=== PATIENT | male | born 1955 | race Caucasian/White ===

== ENCOUNTER 2022-03-28 18:47 | Inpatient (IN) | payer BC, OTHER ==
[~2022-03-28 18:47] MED LIST: Iopamidol-370 76% 500 ML 1 ML ONE
[2022-03-28 19:31] LABS: Hemoglobin 11.4 g/dL (14.0-18.0); Mean Corpuscular HGB CONC 33.2 g/dL (32.0-36.0); Mean Corpuscular Hemoglobin 31.6 pg (27.0-31.0); Mean Corpuscular Volume 95.1 fl (78.0-98.0); Mean Platelet Volume 8.4 fL (7.4-10.4); Platelet Count 261 thou/uL (130-400); RBC Distribution Width 12.8 % (11.5-14.5); White Blood Cell (WBC) Count 18.8 thou/uL (4.8-10.8)
[2022-03-28 19:52] LABS: ALT (SGPT) 35 U/L (8-55); AST (SGOT) 51 U/L (5-34); Albumin 3.4 g/dL (3.4-4.8); Alkaline Phosphatase 91 U/L (40-110); Anion Gap 13 mmol/L (10-20); BUN (Urea Nitrogen) 10 mg/dL (8.4-25.7); Bilirubin, Total 0.5 mg/dL (0.2-1.2); Calc. Creatinine Clearance 0 mL/min (70-130); Calcium 8.8 mg/dL (7.8-10.44); Carbon Dioxide 25 mmol/L (23-31); Chloride 93 mmol/L (98-107); Estimated GFR 83; Globulin 3.8 g/dL (2.4-3.5); Glucose 113 mg/dL (80-115); Lipase 103 U/L (8-78); Potassium 3.8 mmol/L (3.5-5.1); Protein, Total 7.2 g/dL (5.8-8.1); Sodium 127 mmol/L (136-145)
[2022-03-28 19:54] LABS: Band 12 % (5-11); Lymphocytes 13 % (21-51); MDiff Complete? YES; Monocytes 6 % (0-10); Neutrophil 66 % (42-75); Platelet Morphology Comment Appears Adequate; Polychromasia SLIGHT = 2-3 cells (100X) (0-2/hpf); Reactive Lymphocytes 2 % (0-10)
[2022-03-28] MEDS ORDERED: Piperacillin/Tazobactam 3.375 GM VIAL ONE (22:12)
[2022-03-28] MEDS ORDERED: Ondansetron PF 4 MG/2 ML Vial ONE (22:12)
[2022-03-28] MEDS ORDERED: Morphine 4 MG/ML VIAL ONE (22:12)
[2022-03-29 00:16] VITALS: BMI 29.7
[2022-03-29] MEDS: Sodium Chloride 0.9% 1,000 ML IV SCH ×2 (00:27→14:06)
[2022-03-29] MEDS: Morphine 4 MG/ML VIAL SLOW IVP PRN ×4 (00:31→21:38)
[2022-03-29] MEDS: Piperacillin/Tazobactam 3.375 GM in Sodium Chloride 0.9% 100 ML IVPB SCH ×3 (01:48→17:29)
[2022-03-29 07:15] LABS: #Eosinphils 0.2 thou/uL (0.0-0.7); #Lymphocytes 1.4 thou/uL (1.20-3.40); #Monocytes 1.9 thou/uL (0.11-0.59); %Basophils 0.2 % (0.0-1.0); %Eosinophils 1.3 % (0.0-10.0); %Lymphocytes 7.8 % (21.0-51.0); %Neutrophils 79.7 % (42.0-75.0); Hemoglobin 11.9 g/dL (14.0-18.0); Mean Corpuscular HGB CONC 33.3 g/dL (32.0-36.0); Mean Platelet Volume 8.3 fL (7.4-10.4); Platelet Count 275 thou/uL (130-400); RBC Distribution Width 12.9 % (11.5-14.5); Red Blood Cell (RBC) Count 3.71 mill/uL (4.70-6.10); White Blood Cell (WBC) Count 17.6 thou/uL (4.8-10.8)
[2022-03-29 07:29] LABS: INR-International Normal Ratio 1.1; PTT 34.2 sec (22.9-36.1); Prothrombin Time 14.7 sec (12.0-14.7)
[2022-03-29 07:34] LABS: Anion Gap 10 mmol/L (10-20); BUN (Urea Nitrogen) 8 mg/dL (8.4-25.7); Calc. Creatinine Clearance 99 mL/min (70-130); Carbon Dioxide 23 mmol/L (23-31); Chloride 99 mmol/L (98-107); Estimated GFR 93; Glucose 110 mg/dL (80-115); Potassium 4.1 mmol/L (3.5-5.1); Sodium 128 mmol/L (136-145)
[2022-03-29] MEDS: Famotidine/PF 20 mg/2ml Vial SLOW IVP SCH (08:01)
[2022-03-29] MEDS ORDERED: FENTANYL 50 MCG/ML 1 ML VIAL ONE (09:49)
[2022-03-29] MEDS ORDERED: Midazolam HCl 2 mg/2 ml Vial ONE (09:49)
[2022-03-29] MEDS ORDERED: Sodium Bicarbonate 2.5 MEQ/5 ML VIAL ONE (09:50)
[2022-03-29] MEDS ORDERED: Lidocaine 2% PF 5 ML VIAL ONE (09:50)
[2022-03-29 12:12] LABS: BF Color Brown; Body Fluid Source Abscess Fluid; Clarity Cloudy/Turbid (Clear)
[2022-03-29 12:16] LABS: Cell Count Non Hematic 7 %; Lymphocytes 4 %
[2022-03-29 12:20] LABS: Segmented Neutrophils 89 %
[2022-03-30] MEDS: Piperacillin/Tazobactam 3.375 GM in Sodium Chloride 0.9% 100 ML IVPB SCH ×3 (01:10→17:21)
[2022-03-30] MEDS: Sodium Chloride 0.9% 1,000 ML IV SCH ×2 (01:11→15:17)
[2022-03-30] MEDS: Morphine 4 MG/ML VIAL SLOW IVP PRN (06:11)
[2022-03-30] MEDS: Famotidine/PF 20 mg/2ml Vial SLOW IVP SCH (08:48)
[2022-03-30] MEDS ORDERED: Polyethylene Glycol 3350 17 GM Packet PO PRN (18:43)
[2022-03-30] MEDS: Docusate 100 MG CAP PO SCH (20:53)
[2022-03-30] MEDS: Enoxaparin Sodium 40 MG/0.4 ML SYRINGE SC SCH (20:54)
[2022-03-31] MEDS: Piperacillin/Tazobactam 3.375 GM in Sodium Chloride 0.9% 100 ML IVPB SCH ×3 (01:36→17:10)
[2022-03-31] MEDS: Sodium Chloride 0.9% 1,000 ML IV SCH (05:11)
[2022-03-31] MEDS: Morphine 4 MG/ML VIAL SLOW IVP PRN (05:31)
[2022-03-31 06:11] LABS: #Eosinphils 0.5 thou/uL (0.0-0.7); #Lymphocytes 1.4 thou/uL (1.20-3.40); #Monocytes 0.9 thou/uL (0.11-0.59); #Neutrophils 7.7 thou/uL (1.40-6.50); %Basophils 0.1 % (0.0-1.0); %Eosinophils 4.5 % (0.0-10.0); %Lymphocytes 13.8 % (21.0-51.0); %Monocytes 8.3 % (0.0-10.0); %Neutrophils 73.4 % (42.0-75.0); Hemoglobin 10.8 g/dL (14.0-18.0); Mean Corpuscular HGB CONC 33.2 g/dL (32.0-36.0); Mean Corpuscular Volume 96.4 fl (78.0-98.0); Mean Platelet Volume 8.3 fL (7.4-10.4); Platelet Count 305 thou/uL (130-400); Red Blood Cell (RBC) Count 3.37 mill/uL (4.70-6.10); White Blood Cell (WBC) Count 10.5 thou/uL (4.8-10.8)
[2022-03-31 06:46] LABS: ALT (SGPT) 25 U/L (8-55); AST (SGOT) 42 U/L (5-34); Albumin 2.7 g/dL (3.4-4.8); Alkaline Phosphatase 69 U/L (40-110); Anion Gap 10 mmol/L (10-20); BUN (Urea Nitrogen) 10 mg/dL (8.4-25.7); Bilirubin, Total 0.7 mg/dL (0.2-1.2); Calc. Creatinine Clearance 101 mL/min (70-130); Carbon Dioxide 25 mmol/L (23-31); Chloride 100 mmol/L (98-107); Estimated GFR 95; Globulin 3.5 g/dL (2.4-3.5); Glucose 110 mg/dL (80-115); Protein, Total 6.2 g/dL (5.8-8.1); Sodium 131 mmol/L (136-145)
[2022-03-31] MEDS: Famotidine/PF 20 mg/2ml Vial SLOW IVP SCH (09:10)
[2022-03-31] MEDS: Docusate 100 MG CAP PO SCH ×2 (09:11→20:00)
[2022-03-31] MEDS: Saccharomyces boulardii 250 MG CAP PO SCH (09:11)
[2022-03-31] MEDS ORDERED: Bisacodyl 5 MG TAB PO PRN (14:20)
[2022-03-31] MEDS: Enoxaparin Sodium 40 MG/0.4 ML SYRINGE SC SCH (20:00)
[2022-04-01] MEDS: Piperacillin/Tazobactam 3.375 GM in Sodium Chloride 0.9% 100 ML IVPB SCH ×2 (02:20→08:47)
[2022-04-01 07:39] LABS: Anion Gap 11 mmol/L (10-20); BUN (Urea Nitrogen) 9 mg/dL (8.4-25.7); Calc. Creatinine Clearance 99 mL/min (70-130); Calcium 8.4 mg/dL (7.8-10.44); Carbon Dioxide 24 mmol/L (23-31); Chloride 102 mmol/L (98-107); Estimated GFR 93; Glucose 117 mg/dL (80-115); Potassium 4.2 mmol/L (3.5-5.1); Sodium 133 mmol/L (136-145)
[2022-04-01 08:16] LABS: Band 18 % (5-11); Eosinophils 4 % (0-10); Hemoglobin 10.9 g/dL (14.0-18.0); Lymphocytes 16 % (21-51); MDiff Complete? YES; Mean Corpuscular HGB CONC 32.7 g/dL (32.0-36.0); Mean Corpuscular Hemoglobin 31.9 pg (27.0-31.0); Mean Corpuscular Volume 97.5 fl (78.0-98.0); Mean Platelet Volume 8.2 fL (7.4-10.4); Metamyelocyte 2 % (0-0); Monocytes 5 % (0-10); Myelocyte 1 % (0-0); Neutrophil 52 % (42-75); Platelet Count 339 thou/uL (130-400); Platelet Morphology Comment Appears Adequate; Polychromasia SLIGHT = 2-3 cells (100X) (0-2/hpf); RBC Distribution Width 13.2 % (11.5-14.5); Reactive Lymphocytes 2 % (0-10); Red Blood Cell (RBC) Count 3.41 mill/uL (4.70-6.10); Target Cells SLIGHT = 2-5 cells (100X) (0-1/hpf); White Blood Cell (WBC) Count 10.4 thou/uL (4.8-10.8)
[2022-04-01] MEDS: Docusate 100 MG CAP PO SCH (08:41)
[2022-04-01] MEDS: Famotidine/PF 20 mg/2ml Vial SLOW IVP SCH (08:41)
[2022-04-01] MEDS: Saccharomyces boulardii 250 MG CAP PO SCH (08:41)
[2022-04-01 15:44] VITALS: BP 124/73; TEMP 97.5
== END 2022-04-01 15:31 | disposition home or self-care (01) | DRG 862 ==
LOC: ERS 18:47 → T4-B 22:37
PROVIDERS: ADMIT Surgery; ATTEND Surgery
PROC: 0W9H3ZZ Drainage of Retroperitoneum, Percutaneous Approach (ICD-10-PCS; principal; 2022-03-29)
DX: T81.43XA Infection following a procedure, organ and space surgical site, initial encounter (principal); K35.33 Acute appendicitis with perforation, localized peritonitis, and gangrene, with abscess; K65.1 Peritoneal abscess; Z20.822 Contact with and (suspected) exposure to COVID-19; F17.210 Nicotine dependence, cigarettes, uncomplicated; Y83.8 Other surgical procedures as the cause of abnormal reaction of the patient, or of later complication, without mention of misadventure at the time of the procedure
CPT/HCPCS: 36415; 49060; 74176; 74177; 77012; 80048; 80053; 83690; 85025; 85060; 85610; 87070; 87077; 87186; 87205; 89051; 93005; 96365; 96375; C1729; J1650; J2001; J2250; J2270; J2405; J2543; J3010; J3490; J7050; Q9967; S0028; U0003; U0005